=== PATIENT | male | born 1945 | race Caucasian/White ===

== ENCOUNTER 2019-10-05 11:09 | Inpatient (IN) ==
[2019-10-05] MEDS ORDERED: diPHENhydraMINE IV 50 MG/ML 1 ml VIAL (BENADRYL) IV PRN (12:20)
[2019-10-05] MEDS ORDERED: Ondansetron 4 mg VIAL 2 MG/ML 2 ml VIAL IV PRN (12:20)
[2019-10-05] MEDS ORDERED: diPHENhydraMINE 25 mg TAB PO PRN (12:20)
[2019-10-05] MEDS ORDERED: Polyethylene Glycol 3350 17 GM PACKET PO PRN (12:30)
[2019-10-05] MEDS: ceFAZolin 2 GM PREMIX 2 GM/50 ML BAG IVPB SCH ×2 (13:58→21:18)
[2019-10-05] MEDS: Lactated Ringers 1000 ml BAG 1,000 ML IV SCH (15:27)
[2019-10-06] MEDS ORDERED: fentaNYL 100 mcg/2 ml 50 MCG/ML VIAL IV SCH
[2019-10-06] MEDS ORDERED: Propofol 10 MG/ML 20 ML BTL IV SCH
[2019-10-06] MEDS ORDERED: Midazolam 2 mg/2 ml VIAL 1 mg/ml 2 ml VIAL (2 mg) IV SLOW PU SCH
[2019-10-06] MEDS ORDERED: Lidocaine 2% PF 5 ML VIAL INJ SCH
[2019-10-06] MEDS ORDERED: Lidocaine 2% PF 10 ML AMP INJ SCH
[2019-10-06] MEDS: Lactated Ringers 1000 ml BAG 1,000 ML IV SCH ×3 (02:36→17:43)
[2019-10-06] MEDS: ceFAZolin 2 GM PREMIX 2 GM/50 ML BAG IVPB SCH ×3 (04:44→21:02)
[2019-10-06] MEDS ORDERED: Buffered Lidocaine 1% SYRIN 1 ml INTRADERM ONE (06:00)
[2019-10-06 07:39] LABS: ABS Eosinophils 0.3 10^3/ul (0-0.6); ABS Lymphocytes 1.2 10^3/ul (1.0-4.8); ABS Monocytes 0.5 10^3/ul (0-0.8); ABS Neutrophils 4.8 10^3/ul (1.5-7.7); Hematocrit 37 % (42-52); Lymphocyte % 17.3 %; Mean Corpuscular HGB Conc 36 g/dL (31-36); Mean Corpuscular Hemoglobin 32 pg (27-31); Mean Corpuscular Volume 91 fL (80-94); Mean Platelet Volume 7.7 fL (7.4-10.4); Platelet Count 291 10^3/uL (150-450); Red Blood Count 4.05 10^6 /uL (4.18-5.48); Red Cell Distribution Width 15 % (10-15); White Blood Count 6.9 10^3/uL (3.5-10.8)
[2019-10-06 07:55] LABS: Albumin 4.2 g/dL (3.2-5.2); Albumin/Globulin Ratio 1.4 (1-3); BUN/Creatinine Ratio 19.4 (8-20); C Reactive Protein 18.04 mg/L (<8.01); Calcium 9.8 mg/dL (8.6-10.3); EGFR African American 85.9 (>60); Globulin 2.9 g/dL (2-4); Total Bilirubin 0.4 mg/dL (0.2-1.0); Total Protein 7.1 g/dL (6.4-8.9)
[2019-10-06] MEDS: Gemfibrozil 600 mg PO SCH (08:24)
[2019-10-06] MEDS ORDERED: Ondansetron 4 mg VIAL 2 MG/ML 2 ml VIAL IV PRN (11:05)
[2019-10-06] MEDS ORDERED: Naloxone 0.4 mg VIAL 0.4 mg/ml 1 ml VIAL IV PRN (11:05)
[2019-10-06] MEDS ORDERED: HYDROmorphone 1 MG/1 ML SYRINGE IV PRN (11:05)
[2019-10-06] MEDS: Potassium Chlor 20 meq TAB.ER PO SCH (12:42)
[2019-10-06] MEDS ORDERED: Morphine 2 MG/ML SYRINGE IV PRN (13:01)
[2019-10-07] MEDS: ceFAZolin 2 GM PREMIX 2 GM/50 ML BAG IVPB SCH ×3 (04:45→21:19)
[2019-10-07] MEDS: Gemfibrozil 600 mg PO SCH (09:04)
[2019-10-07 09:16] LABS: ABS Eosinophils 0.3 10^3/ul (0-0.6); ABS Lymphocytes 0.9 10^3/ul (1.0-4.8); ABS Monocytes 0.4 10^3/ul (0-0.8); ABS Neutrophils 3.6 10^3/ul (1.5-7.7); Eosinophil % 5.2 %; Hematocrit 36 % (42-52); Hemoglobin 12.5 g/dL (14.0-18.0); Lymphocyte % 17.3 %; Mean Corpuscular HGB Conc 35 g/dL (31-36); Mean Corpuscular Hemoglobin 32 pg (27-31); Mean Corpuscular Volume 91 fL (80-94); Mean Platelet Volume 7.7 fL (7.4-10.4); Nucleated Red Blood Cells % 0.1; Platelet Count 270 10^3/uL (150-450); Red Blood Count 3.89 10^6 /uL (4.18-5.48); Red Cell Distribution Width 15 % (10-15); White Blood Count 5.2 10^3/uL (3.5-10.8)
[2019-10-07 09:21] LABS: BUN/Creatinine Ratio 18.9 (8-20); Calcium 9.6 mg/dL (8.6-10.3); EGFR African American 94.3 (>60); EGFR Non-African American 77.9 (>60); Potassium 4.2 mmol/L (3.5-5.0)
[2019-10-07] MEDS: Potassium Chlor 20 meq TAB.ER PO SCH (12:10)
[2019-10-08] MEDS: ceFAZolin 2 GM PREMIX 2 GM/50 ML BAG IVPB SCH (04:31)
[2019-10-08] MEDS: Gemfibrozil 600 mg PO SCH (07:59)
[2019-10-08] MEDS ORDERED: ZOSYN 3.375 GM x ONE DOSE over 30 miuntes IV (11:00)
[2019-10-08 11:35] VITALS: BP 100/63
[2019-10-08] MEDS: Potassium Chlor 20 meq TAB.ER PO SCH (12:22)
[2019-10-08] MEDS ORDERED: Piperacillin/Tazobac ADVAN 3.375 GM in NS 0.9% 100 ml BAG 100 ML IV SCH (15:30)
== END 2019-10-08 16:00 | disposition home or self-care (01) | DRG 502 ==
LOC: MED 11:34
PROVIDERS: ADMIT Orthopaedic Surgery; ATTEND Orthopaedic Surgery